=== PATIENT | male | born 2005 | race Caucasian/White ===

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

== ENCOUNTER 2025-03-25 19:16 | Emergency (ER) | payer BC ==
[~2025-03-25] VITALS: Ht 185.4 cm; Wt 65.8 kg
[~2025-03-25 19:16] MED LIST: ONDANSETRON4 MG SL
[2025-03-25] MEDS ORDERED: Doxycycline Hyclate 100 MG CAPSULE PO ONE (19:40)
[2025-03-25] MEDS ORDERED: Ciprofloxacin Hydrochloride 500 MG TAB PO ONE (19:40)
[2025-03-25] MEDS ORDERED: VIBRAMYCIN100 MG PO (19:59)
== END 2025-03-25 20:13 | disposition home or self-care (01) ==
LOC: ED 19:16
DX: N45.1 Epididymitis (principal); Z88.0 Allergy status to penicillin

== ENCOUNTER → 2025-08-05 | Outpatient (CLI) | payer BC ==
[~2025-08-05] MED LIST changes: +VIBRAMYCIN100 MG PO
== END | disposition home or self-care (01) ==
LOC: RAD 13:47
PROVIDERS: ATTEND Family Medicine
DX: M79.89 Other specified soft tissue disorders (principal); R07.81 Pleurodynia